=== PATIENT | male | born 1960 | race Caucasian/White ===

== ENCOUNTER 2021-08-01 21:07 | Inpatient (IN) | payer MEDICARE ==
[2021-08-01] MEDS ORDERED: Ondansetron PF 4 MG/2 ML Vial IVP PRN (21:48)
[2021-08-01] MEDS ORDERED: Ondansetron ODT 4 MG TAB PO PRN ×2 (21:48→21:57)
[2021-08-01] MEDS ORDERED: Lorazepam 1 MG TAB PO PRN (21:57)
[2021-08-01] MEDS ORDERED: Electrolyte Replacement Protocol 1 EACH FS PRN (22:00)
[2021-08-01 22:21] VITALS: BMI 39.0
[2021-08-01] MEDS ORDERED: HumaLOG 300 UNITS/3 ML VIAL SC PRN (22:21)
[2021-08-01] MEDS ORDERED: Dextrose 5% in Water 1,000 ML IV PRN (22:21)
[2021-08-01] MEDS ORDERED: Dextrose 50% Abboject 50 ML SYRINGE SLOW IVP PRN (22:21)
[2021-08-01] MEDS: Thiamine HCl 200 MG/2 ML VIAL SLOW IVP SCH (23:33)
[2021-08-02 00:04] LABS: Bilirubin Negative (Negative); Blood, Urine Negative (Negative); Clarity Clear (Clear); Glucose, Urine (Dipstick) Normal (Negative); Ketone, Urine Negative (Negative); Leukocyte Negative Leu/uL (Negative); Nitrite Negative (Negative); Protein, Urine (Dipstick) Negative (Neg-Trace); RBC/HPF 0-3 HPF (0-3); Specific Gravity, Urine 1.029 (1.002-1.036); Squamous Epithelial None Seen HPF (0-3); Urobilinogen Normal mg/dL (Less than 2); WBC/HPF 0-3 HPF (0-3); pH, Urine 5.5 (5.0-9.0)
[2021-08-02 00:05] LABS: Bacteria/HPF 1+ HPF (None Seen)
[2021-08-02 00:06] LABS: Urine Culture Reflex Yes Yes
[2021-08-02 04:47] LABS: #Basophils 0.1 thou/uL (0.0-0.2); #Eosinphils 0.3 thou/uL (0.0-0.7); #Lymphocytes 3.1 thou/uL (1.20-3.40); #Monocytes 1.2 thou/uL (0.11-0.59); #Neutrophils 6.4 thou/uL (1.40-6.50); %Basophils 0.8 % (0.0-1.0); %Eosinophils 2.3 % (0.0-10.0); %Lymphocytes 28.5 % (21.0-51.0); %Monocytes 10.4 % (0.0-10.0); %Neutrophils 57.9 % (42.0-75.0); Hemoglobin 16.9 g/dL (14.0-18.0); Mean Corpuscular HGB CONC 33.3 g/dL (32.0-36.0); Mean Corpuscular Hemoglobin 32.9 pg (27.0-31.0); Mean Corpuscular Volume 98.6 fL (78.0-98.0); Mean Platelet Volume 6.9 fL (7.4-10.4); Platelet Count 235 thou/uL (130-400); RBC Distribution Width 12.5 % (11.5-14.5); Red Blood Cell (RBC) Count 5.14 mill/uL (4.70-6.10)
[2021-08-02 04:54] LABS: Hemoglobin A1c 7.1 % (4.0-6.0)
[2021-08-02 05:19] LABS: ALT (SGPT) 37 U/L (8-55); AST (SGOT) 34 U/L (5-34); Albumin 4.1 g/dL (3.4-4.8); Alkaline Phosphatase 78 U/L (40-110); Anion Gap 11 mmol/L (10-20); BUN (Urea Nitrogen) 20 mg/dL (8.4-25.7); Calc. Creatinine Clearance 119 mL/min (70-130); Calcium 9.3 mg/dL (7.8-10.44); Carbon Dioxide 27 mmol/L (23-31); Cardiac Risk 4.1 (Less than 4.5); Chloride 103 mmol/L (98-107); Cholesterol 157 mg/dl (< 200 Desired); Globulin 3.4 g/dL (2.4-3.5); Glucose 110 mg/dL (80-115); HDL Cholesterol 38 mg/dL (>60 Neg Risk); LDL Cholesterol, Calculated 57 mg/dL; Magnesium 2.5 mg/dL (1.6-2.6); Phosphorus 3.5 mg/dL (2.3-4.7); Potassium 4.2 mmol/L (3.5-5.1); Protein, Total 7.5 g/dL (5.8-8.1); Sodium 137 mmol/L (136-145); Triglycerides 311 mg/dL (Less than 150)
[2021-08-02 05:20] LABS: Bilirubin, Total 0.5 mg/dL (0.2-1.2)
[2021-08-02 05:37] LABS: Thyroid Stimulating Hormone 1.6164 uIU/mL (0.35-4.94)
[2021-08-02] MEDS: Aspirin 81 mg Enteric Coated Tablet PO SCH (08:56)
[2021-08-02] MEDS: Folic Acid 1 MG TAB PO SCH (08:57)
[2021-08-02] MEDS: Multivit, Therapeutic 1 TAB PO SCH (09:03)
[2021-08-02] MEDS ORDERED: Morphine 2 MG/ML VIAL SLOW IVP PRN (10:39)
[2021-08-02] MEDS: HYDROcodone/Acetaminophen 5/325 mg Tablet PO PRN ×3 (10:57→21:50)
[2021-08-02] MEDS: HumaLOG 300 UNITS/3 ML VIAL SC PRN ×2 (11:44→17:18)
[2021-08-02 12:29] LABS: Cardiac Risk 4.1 (Less than 4.5)
[2021-08-02] MEDS: Rivaroxaban 10 MG TAB PO SCH (17:12)
[2021-08-02] MEDS: Mometasone 100 MCG/PUFF (1 INHALER) INH SCH (19:43)
[2021-08-02] MEDS: Senokot S 8.6-50 MG TAB PO PRN (20:30)
[2021-08-02] MEDS: Pregabalin 75 MG CAP PO SCH (20:30)
[2021-08-02] MEDS: Atorvastatin Calcium 40 MG TAB PO SCH (20:31)
[2021-08-02] MEDS: Thiamine HCl 200 MG/2 ML VIAL SLOW IVP SCH (21:53)
[2021-08-02] MEDS ORDERED: Lorazepam 1 MG TAB PO PRN (21:57)
[2021-08-02] MEDS: Polyethylene Glycol 3350 17 GM Packet PO PRN (23:38)
[2021-08-03] MEDS: Zolpidem Tartrate 5 MG TAB PO PRN ×2 (03:33→22:55)
[2021-08-03] MEDS: hydrALAZINE 20 MG/ML VIAL SLOW IVP PRN ×2 (04:02→17:06)
[2021-08-03 05:59] LABS: Magnesium 2.4 mg/dL (1.6-2.6)
[2021-08-03] MEDS: Mometasone 100 MCG/PUFF (1 INHALER) INH SCH ×2 (08:03→19:40)
[2021-08-03] MEDS: Aspirin 81 mg Enteric Coated Tablet PO SCH (08:29)
[2021-08-03] MEDS: Pregabalin 75 MG CAP PO SCH ×2 (08:30→21:08)
[2021-08-03] MEDS: Senokot S 8.6-50 MG TAB PO PRN (08:31)
[2021-08-03] MEDS: Multivit, Therapeutic 1 TAB PO SCH (08:31)
[2021-08-03] MEDS: HYDROcodone/Acetaminophen 5/325 mg Tablet PO PRN ×3 (08:31→18:33)
[2021-08-03] MEDS: Folic Acid 1 MG TAB PO SCH (08:31)
[2021-08-03 08:56] LABS: #Basophils 0.1 thou/uL (0.0-0.2); #Eosinphils 0.3 thou/uL (0.0-0.7); #Lymphocytes 2.1 thou/uL (1.20-3.40); #Monocytes 1.2 thou/uL (0.11-0.59); #Neutrophils 4.9 thou/uL (1.40-6.50); %Lymphocytes 24.4 % (21.0-51.0); %Monocytes 13.9 % (0.0-10.0); %Neutrophils 57.7 % (42.0-75.0); Hemoglobin 17.9 g/dL (14.0-18.0); Mean Corpuscular Hemoglobin 33.3 pg (27.0-31.0); Mean Corpuscular Volume 97.9 fL (78.0-98.0); Mean Platelet Volume 6.9 fL (7.4-10.4); Platelet Count 182 thou/uL (130-400); RBC Distribution Width 12.2 % (11.5-14.5); Red Blood Cell (RBC) Count 5.37 mill/uL (4.70-6.10); White Blood Cell (WBC) Count 8.5 thou/uL (4.8-10.8)
[2021-08-03] MEDS ORDERED: NIFEdipine XL 30 MG TAB PO SCH (14:30)
[2021-08-03 15:43] LABS: Anion Gap 15 mmol/L (10-20); BUN (Urea Nitrogen) 14 mg/dL (8.4-25.7); Calc. Creatinine Clearance 128 mL/min (70-130); Calcium 9.1 mg/dL (7.8-10.44); Carbon Dioxide 22 mmol/L (23-31); Chloride 99 mmol/L (98-107); Glucose 186 mg/dL (80-115); Potassium 4.2 mmol/L (3.5-5.1); Sodium 132 mmol/L (136-145)
[2021-08-03] MEDS: Rivaroxaban 10 MG TAB PO SCH (17:06)
[2021-08-03] MEDS: Lorazepam 0.5 MG TAB PO SCH (21:07)
[2021-08-03] MEDS: Atorvastatin Calcium 40 MG TAB PO SCH (21:08)
[2021-08-03] MEDS: Thiamine HCl 200 MG/2 ML VIAL SLOW IVP SCH (21:09)
[2021-08-03] MEDS: HumaLOG 300 UNITS/3 ML VIAL SC PRN (21:10)
[2021-08-03] MEDS ORDERED: Lorazepam 1 MG TAB PO PRN (21:57)
[2021-08-03] MEDS: Polyethylene Glycol 3350 17 GM Packet PO PRN (22:55)
[2021-08-04] MEDS: HYDROcodone/Acetaminophen 5/325 mg Tablet PO PRN ×3 (03:47→20:18)
[2021-08-04] MEDS: Lorazepam 0.5 MG TAB PO SCH ×3 (05:30→16:07)
[2021-08-04] MEDS: Mometasone 100 MCG/PUFF (1 INHALER) INH SCH ×2 (07:22→19:20)
[2021-08-04] MEDS: Folic Acid 1 MG TAB PO SCH (09:01)
[2021-08-04] MEDS: Aspirin 81 mg Enteric Coated Tablet PO SCH (09:01)
[2021-08-04] MEDS: Multivit, Therapeutic 1 TAB PO SCH (09:01)
[2021-08-04] MEDS: Pregabalin 75 MG CAP PO SCH ×2 (09:01→20:09)
[2021-08-04] MEDS: Senokot S 8.6-50 MG TAB PO PRN ×2 (09:01→20:18)
[2021-08-04] MEDS: NIFEdipine XL 30 MG TAB PO SCH (09:02)
[2021-08-04] MEDS ORDERED: Regadenoson 0.4 MG/5 ML SYRINGE ONE (09:22)
[2021-08-04] MEDS: Rivaroxaban 10 MG TAB PO SCH (16:07)
[2021-08-04] MEDS: HumaLOG 300 UNITS/3 ML VIAL SC PRN (17:36)
[2021-08-04] MEDS: Atorvastatin Calcium 40 MG TAB PO SCH (20:09)
[2021-08-04] MEDS ORDERED: Lorazepam 0.5 MG TAB PO PRN (21:57)
[2021-08-04] MEDS: Zolpidem Tartrate 5 MG TAB PO PRN (22:27)
[2021-08-05] MEDS: HYDROcodone/Acetaminophen 5/325 mg Tablet PO PRN ×2 (05:39→10:43)
[2021-08-05] MEDS: HumaLOG 300 UNITS/3 ML VIAL SC PRN (06:13)
[2021-08-05] MEDS: Mometasone 100 MCG/PUFF (1 INHALER) INH SCH (07:57)
[2021-08-05] MEDS: Pregabalin 75 MG CAP PO SCH (09:38)
[2021-08-05] MEDS: Folic Acid 1 MG TAB PO SCH (09:39)
[2021-08-05] MEDS: NIFEdipine XL 30 MG TAB PO SCH (09:39)
[2021-08-05] MEDS: Multivit, Therapeutic 1 TAB PO SCH (10:24)
[2021-08-05] MEDS: Aspirin 81 mg Enteric Coated Tablet PO SCH (10:27)
[2021-08-05 12:30] VITALS: BP 158/95; TEMP 97.7
== END 2021-08-05 13:39 | disposition home or self-care (01) | DRG 69 ==
LOC: MSONC 21:07 → NEURO 21:18 → OBSVTOIN 08-03 13:13
PROVIDERS: ADMIT Internal Medicine; ATTEND Internal Medicine
PROC: 4B02XSZ Measurement of Cardiac Pacemaker, External Approach (ICD-10-PCS; principal; 2021-08-03)
DX: G45.9 Transient cerebral ischemic attack, unspecified (principal); I47.2 Ventricular tachycardia; Q04.6 Congenital cerebral cysts; G47.33 Obstructive sleep apnea (adult) (pediatric); J44.9 Chronic obstructive pulmonary disease, unspecified; F10.10 Alcohol abuse, uncomplicated; E11.9 Type 2 diabetes mellitus without complications; I48.0 Paroxysmal atrial fibrillation; E11.40 Type 2 diabetes mellitus with diabetic neuropathy, unspecified; Z95.0 Presence of cardiac pacemaker; Q04.9 Congenital malformation of brain, unspecified; Z88.0 Allergy status to penicillin; Z98.890 Other specified postprocedural states; Z82.49 Family history of ischemic heart disease and other diseases of the circulatory system; Z82.3 Family history of stroke; Z71.41 Alcohol abuse counseling and surveillance of alcoholic; Z79.899 Other long term (current) drug therapy; Z79.4 Long term (current) use of insulin; Z79.01 Long term (current) use of anticoagulants
CPT/HCPCS: 36415; 36416; 70450; 72125; 78452; 80048; 80053; 80061; 81001; 82248; 82607; 82746; 83036; 83735; 84100; 84425; 84443; 85025; 87086; 93017; 93306; 93880; 94640; 95712; 95819; 95957; A9500; J0360; J1815; J2785; J3411; J7620

== ENCOUNTER 2023-03-17 07:20 | Outpatient (CLI) | payer OTHER | END 2023-03-17 07:21 | disposition home or self-care (01) | LOC: MRI 07:20 | PROVIDERS: ATTEND Orthopaedic Surgery | DX: M25.512 Pain in left shoulder (principal); M77.9 Enthesopathy, unspecified; M75.112 Incomplete rotator cuff tear or rupture of left shoulder, not specified as traumatic; M19.012 Primary osteoarthritis, left shoulder ==